=== PATIENT | male | born 2000 | race Caucasian/White ===

== ENCOUNTER 2020-09-05 14:58 | Emergency (ER) | payer OTHER ==
[~2020-09-05] VITALS: Ht 185.4 cm; Wt 94.1 kg
--- NOTE | 2020-09-05 19:14 | REP ---
INDICATION: chest pain/sob. COMPARISON: None. FINDINGS: The superior mediastinal structures are midline. The cardiac silhouette is unremarkable in size, shape, and position. The diaphragmatic surfaces of the lungs are regular, and the costophrenic angles are clear. The pulmonary serrano are clear. The imaged osseous structures are intact. IMPRESSION: There is no acute cardiopulmonary disease. <Electronically signed by Satya Juarez > 09/05/20 [id number]
[2020-09-05] MEDS ORDERED: IBUP80TA PO (19:33)
[2020-09-05 20:45] VITALS: BP 141/90
--- NOTE | 2020-09-06 05:36 | ECGEPIP ---
[facility] - ED Test Date: 2020-09-05 Pat Name: ANNE-MARIE ALLEN Department: Room: - Gender: Male Director Of Collections: VC : 2000 Requested By: Waqas Bowen Order Number: [id number] Reading MD: Robert Serrano Measurements Intervals [place] Rate: 61 P: 62 MO: 158 QRS: 102 QRSD: 106 T: 53 QT: 374 QTc: 376 Interpretive Statements Normal sinus rhythm with sinus arrhythmia Rightward axis Comparison tracing not on file Electronically Signed on 09-06-2020 5:35:44 EDT by Robert Serrano
== END 2020-09-05 20:49 | disposition home or self-care (01) ==
LOC: M ED 14:58
DX: R07.9 Chest pain, unspecified (principal); R06.02 Shortness of breath; T50.B95A Adverse effect of other viral vaccines, initial encounter; Z72.0 Tobacco use

== ENCOUNTER 2021-01-03 08:12 | Observation (INO) | payer OTHER ==
[~2021-01-03] VITALS: Ht 188 cm; Wt 96.6 kg
[~2021-01-03 08:12] MED LIST: IBUP80TA PO
--- NOTE | 2021-01-03 09:02 | REP ---
INDICATION: fall injury COMPARISON: None. TECHNIQUE: AP, lateral, bilateral oblique views left wrist. FINDINGS: No obvious acute fracture or dislocation is identified. IMPRESSION: No obvious acute fracture or dislocation identified. If the patient remains symptomatic consider re-evaluation in 3-5 days. <Electronically signed by Wood Haji > 01/03/21 0812
--- NOTE | 2021-01-03 10:05 | REP ---
INDICATION: fall, R infraorbital pain/laceration, nasal lac. COMPARISON: None. TECHNIQUE: Helical scanning is acquired. 5 mm axial images were reformatted. Coronal MPR images were generated. FINDINGS: Digital preliminary retail key holder radiographs are unremarkable. On bone window settings, the bony calvarium is intact. No skull fracture or bony destructive lesion is seen. Visualized paranasal sinuses are clear. No intraorbital abnormality is seen. On soft tissue window settings, there is no evidence of intracranial hemorrhage or extra-axial fluid collection. There is a small well cyst circumscribed low-density area in the periventricular white matter of the left frontal lobe. This measures 6 mm in diameter and is compatible with a dilated perivascular space which is a normal variant versus a lacune are white matter infarct. This is considered unlikely in this patient's age group. Alaniz-white differentiation pattern is otherwise intact. No acute infarction is seen. No mass or midline shift is observed. IMPRESSION: No skull fracture or intracranial injury seen. 6 mm low-density area in the periventricular white matter of the left frontal lobe as above. Dilated perivascular space versus old lacunar infarct. <Electronically signed by Timoteo Pierce > 01/03/21 1003
--- NOTE | 2021-01-03 10:05 | REP ---
INDICATION: fall, left 5th metacarpal tenderness COMPARISON: None. TECHNIQUE: AP, lateral, bilateral oblique views left hand. FINDINGS: The osseous structures and joint spaces are intact and normal. There is no evidence for acute fracture or dislocation. Surrounding soft tissues are unremarkable. No subcutaneous emphysema or radiodense foreign body. IMPRESSION: . No acute fracture or dislocation. <Electronically signed by Wood Haji > 01/03/21 1004
--- NOTE | 2021-01-03 10:50 | REPVR ---
PROCEDURE INFORMATION: Exam: CT Maxillofacial Without Contrast Exam date and time: 01/03/2021 9:52 AM Age: 20 years old Clinical indication: Pain; Other: Fall; Additional info: Fall, R infraorbital pain/laceration, nasal lac TECHNIQUE: Imaging protocol: Computed tomography images of the face without contrast. Radiation optimization: All CT scans at this facility use at least one of these dose optimization techniques: automated exposure control; mA and/or kV adjustment per patient size (includes targeted exams where dose is matched to clinical indication); or iterative reconstruction. COMPARISON: No relevant prior studies available. FINDINGS: Orbital cavity: Orbits are normal. Globes are unremarkable. Bones/joints: No acute fracture. Paranasal sinuses: Normal. No air-fluid levels. Soft tissues: There is right facial/nasal soft tissue injury, with swelling and small focus of air. IMPRESSION: Soft tissue injury. No fracture. Electronically signed by: Amanda Stokes On 01/03/2021 10:50:28 AM
[2021-01-03] MEDS ORDERED: ceFAZolin SOD 2 GM in IV 1 EA IV ONE (13:55)
[2021-01-03] MEDS ORDERED: FLUTISP NARES (14:19)
[2021-01-03] MEDS ORDERED: HOME MED LIST COMPLETE! XX SCH (14:20)
[2021-01-03] MEDS ORDERED: ONDANSETRON 4MG/2ML VIAL As Ordered ONE (14:30)
[2021-01-03] MEDS ORDERED: MIDAZOLAM INJ 2MG/2ML VIAL (J2250 PER 1MG) As Ordered ONE (14:30)
[2021-01-03] MEDS ORDERED: fentaNYL 100 MCG/2 ML INJECTION (J3010) As Ordered ONE (14:30)
[2021-01-03] MEDS ORDERED: dexameTHASONE 4 MG/ML 1ML VIAL (J1100 PER 1MG) As Ordered ONE (14:30)
[2021-01-03] MEDS ORDERED: LIDOCAINE 2% 100MG/5ML SDV (FOR ANES.) As Ordered ONE (14:30)
[2021-01-03] MEDS ORDERED: ROCURONIUM BROMIDE 50 MG/5 ML VIAL As Ordered ONE (14:30)
[2021-01-03] MEDS ORDERED: propofoL 200 MG/20 ML VIAL As Ordered ONE (14:30)
[2021-01-03 14:37] LABS: RSV AMPLIFICATION NEGATIVE (NEGATIVE)
[2021-01-03 14:38] LABS: BASO % 0.5 % (0.0-1.0); EOS % 0.5 % (0.0-3.0); HEMATOCRIT 46.1 % (42.0-52.0); HEMOGLOBIN 15.7 g/dl (13.5-17.5); LYMPH # 2.1 10^3/uL (1.5-5.0); LYMPH % 26.8 % (24.0-44.0); MEAN CORPUSCULAR HEMOGLOBIN 30.8 pg (27.0-33.0); MEAN CORPUSCULAR HGB CONC 34.1 g/dl (32.0-36.5); MEAN CORPUSCULAR VOLUME 90.4 fl (80.0-96.0); MONO # 0.8 10^3/uL (0.0-0.8); MONO % 10.6 % (2.0-8.0); NEUTROPHILS # 4.8 10^3/uL (1.5-8.5); NEUTROPHILS % 61.3 % (36.0-66.0); PLATELET COUNT, AUTOMATED 234 10^3/uL (150-450); WHITE BLOOD COUNT 7.9 10^3/uL (4.0-10.0)
--- NOTE | 2021-01-03 14:43 | CR.PDOC ---
Plastic Surgery Consultation Date of Consultation 01/03/21 History and Physical CONSULT REPORT FOR: ER REASON FOR CONSULTATION: Nose degloving injury. HISTORY OF PRESENT ILLNESS: This is a 20-year-old male brought into the emergency room status post injury to his nose today. Patient was doing his regular exercises when he fell on his weapon which caused the laceration/degloving injury to his nose. He states he is having difficulty breathing through his right nostril. He denies loss of consciousness. He denies headache, dizziness, pain at this moment. PAST MEDICAL HISTORY: Denies medical history. PAST SURGICAL HISTORY: INCLUDES: Bilateral inguinal hernia. PREVIOUS ANESTHESIA REACTIONS: Denies ALLERGIES: Please see below. FAMILY HISTORY: Noncontributory HOME MEDICATIONS: Please see below. REVIEW OF SYSTEMS: GENERAL: Denies chills, reports weight gain,. HEENT: Denies blurred vision and double vision. Denies ear symptoms. Denies hoarseness. NECK: Denies any neck pain]. CARDIOVASCULAR: Denies chest pain and palpitations. MUSCULOSKELETAL: Denies arthralgias, back pain and thrombophlebitis. SKIN: Denies rash. Laceration nose NEUROLOGIC: Denies headache, stroke and transient ischemic attack. PSYCHIATRIC: Denies anxiety and depression. ENDOCRINE: Denies thyroid disease. HEMATOLOGY/ONCOLOGY: Denies bleeding or clotting disorder. HEART: Denies any chest pains, palpitations, paroxysmal dyspnea, orthopnea. PULMONARY: Denies chronic cough, dyspnea and wheezing. GASTROINTESTINAL: Denies rectal bleeding, family history of colon cancer, constipation, diarrhea, dysphagia, heartburn and jaundice. GENITOURINARY: Denies dysuria, frequency, hematuria and nocturia. ENDOCRINE: Denies polydipsia, polyphagia, polyuria, heat or cold intolerance. INFECTIOUS: Denies any recent upper respiratory tract infection, UTI, need for use of antibiotics. NUTRITION: Reports good appetite. PHYSICAL EXAMINATION: VITALS SIGNS: Please see below. GENERAL APPEARANCE:Patient seen, laying in bed, awake, alert, and oriented. Comfortable, in no acute distress. SKIN: Warm and moist. Complete laceration from the tip of the nose to the lateral right cheek with complete separation upper part of the nose. Right nostril passages completely blocked with clot. Left side intact. HEENT: Normocephalic, atraumatic. [place] palpebral conjunctiva, anicteric sclerae. Lips and mucosa appear moist. NECK: Supple, no thyromegaly. No obvious jugular venous distention. LUNGS: Clear to auscultation bilaterally. No wheezing appreciated. HEART: No chest wall abnormalities. Regular rate and rhythm with no murmurs appreciated. ABDOMEN: Abdomen is soft, non-tender, non-distended. EXTREMITIES: Extremities have no deformities. No edema identified. No calf tenderness. LABORATORY DATA: Please see below. IMAGING STUDIES: Maxillofacial CT results: Orbital cavity: Orbits are normal. Globes are unremarkable. Bones/joints: No acute fracture. Paranasal sinuses: Normal. No air-fluid levels. Soft tissues: There is right facial/nasal soft tissue injury, with swelling and small focus of air. IMPRESSION: Soft tissue injury. No fracture. IMPRESSION: Degloving injury nose. PLANS: Patient is n.p.o. Plan to take to the OR for repair divided structures nasal complex laceration. Risk, benefits, and alternatives to the procedure discussed with the patient in detail. He is ready to proceed. Vital Signs Vital Signs Date Time Temp Pulse Resp B/P (MAP) Pulse Ox O2 Delivery O2 Flow Rate FiO2 01/03/21 08:13 96.6 64 18 134/79 (97) 99 Room Air Laboratory Data Labs 24H Laboratory Tests 2 01/03/21 13:53: 01/03/21 13:56: CBC/BMP Home Medications Scheduled PRN Fluticasone Propionate (Fluticasone Propionate) 16 Gm [place].susp, 1 SPRAY NARES DAILY PRN for CONGESTION, (Reported) Allergies Coded Allergies: No Known Allergies (Unverified , 01/03/21) ANTHONY RANDHAWA DO Jan 03, 2021 14:42
[2021-01-03] MEDS ORDERED: BACITRACIN OINTMENT 30GM TUBE As Ordered ONE (14:50)
[2021-01-03] MEDS ORDERED: LIDOCAINE W/EPINEPHRINE 1% 20ML VIAL As Ordered ONE (14:51)
[2021-01-03] MEDS ORDERED: MORPHINE 2 MG/ML 1ML VIAL (J2270) IV PRN (15:00)
[2021-01-03 15:07] LABS: BLOOD UREA NITROGEN 14 MG/DL (7-18); CALCIUM LEVEL 10.1 MG/DL (8.5-10.1); CARBON DIOXIDE LEVEL 26 MEQ/L (21-32); CHLORIDE LEVEL 106 MEQ/L (98-107); CREATININE FOR GFR 1.06 MG/DL (0.70-1.30); GLOMERULAR FILTRATION RATE > 60.0 (>60); GLUCOSE, FASTING 83 MG/DL (70-100); POTASSIUM SERUM 4.2 MEQ/L (3.5-5.1); SODIUM LEVEL 139 MEQ/L (136-145)
--- NOTE | 2021-01-03 15:14 | HPEPDOC ---
[facility] Medical History & Physical Date of Admission Jan 03, 2021 Date of Service: Jan 03, 2021 Attending Physician: Kristie Sibley MD History and Physical HISTORY OF PRESENT ILLNESS: Patient is a 20-year-old male with hx of tobacco use who presented to the emergency room status post fall injury earlier today. According to the patient he was training and fell face forward onto his gun. There was no loss of consciousness, blurry vision, lightheadedness, dizziness, recent illnesses. The patient states he fell on the left hand and experienced left wrist pain after this. The patient was then brought to the emergency room for further evaluation. CT of the head was negative for any acute findings. CT maxillofacial showed soft tissue injury only. His nose laceration ran horizontal and through the right naris. X-ray of the left hand and left wrist were negative for fracture or dislocation. Plastic surgery evaluated in the emergency room and decided to take to OR later this evening. patient admitted under observation status. REVIEW OF SYSTEMS: GENERAL: Denies chills, reports weight gain,. HEENT: Denies blurred vision and double vision. Denies ear symptoms. Denies hoarseness. NECK: Denies any neck pain]. CARDIOVASCULAR: Denies chest pain and palpitations. MUSCULOSKELETAL: Denies arthralgias, back pain and thrombophlebitis. SKIN: Denies rash. Laceration nose NEUROLOGIC: Denies headache, stroke and transient ischemic attack. PSYCHIATRIC: Denies anxiety and depression. ENDOCRINE: Denies thyroid disease. HEMATOLOGY/ONCOLOGY: Denies bleeding or clotting disorder. HEART: Denies any chest pains, palpitations, paroxysmal dyspnea, orthopnea. PULMONARY: Denies chronic cough, dyspnea and wheezing. GASTROINTESTINAL: Denies rectal bleeding, family history of colon cancer, constipation, diarrhea, dysphagia, heartburn and jaundice. GENITOURINARY: Denies dysuria, frequency, hematuria and nocturia. ENDOCRINE: Denies polydipsia, polyphagia, polyuria, heat or cold intolerance. INFECTIOUS: Denies any recent upper respiratory tract infection, UTI, need for use of antibiotics. PAST MEDICAL HISTORY: Hx of hypospadies Tobacco use PAST SURGICAL HISTORY: INCLUDES: Bilateral inguinal hernia repair Hypospadies surgery ALLERGIES: Please see below. FAMILY HISTORY: No significant Family history per patient HOME MEDICATIONS: Please see below. SOCIAL HISTORY: Vapes weekly, alcohol socially monthly, denies illicit drug use. Active duty PHYSICAL EXAMINATION: CONSTITUTIONAL: No acute distress, resting comfortably, AAO x 3 EYES: PERRLA, EOM intact HENT, MOUTH: Normocephalic, large right naris laceration approx 1.5 inch in length through naris, moist mucous membranes NECK: SUPPLE, no JVD, no lymphadenopathy, no carotid bruit CV: Regular rate and rhythm, S1S2 normal, no murmurs/rubs/gallops RESPIRATORY: Clear to auscultation bilaterally, no rales/rhonchi/wheezes GI: BS positive in 4 quadrants, soft, nontender, nondistended, no rebound or guarding, no organomegaly : Deferred MUSCULOSKELETAL: Decreased ROM left wrist with pain with lateral movement, left wrist in splint. No cyanosis, clubbing, swelling, joint deformity, extremity edema INTEGUMENTARY: Intact, no rashes, no lesions, no erythema NEUROLOGIC: Cranial Nerves II-XII are intact, no focal deficits PSYCHIATRIC: Mood and affect are normal LABORATORY DATA: Please see below IMAGING STUDIES: CT head: No skull fracture or intracranial injury seen. 6 mm low-density area in the periventricular white matter of the left frontal lobe as above. Dilated perivascular space versus old lacunar infarct. CT maxillofacial: Soft tissue injury. No fracture. Left hand and wrist XR neg ASSESSMENT: 20-year-old male with no past medical history admitted for facial degloving injury, nares laceration requiring OR this evening. PLAN: 1. Facial trauma, degloving injury/right nares laceration -Evaluated by plastic surgery , plan to take to the OR today for repair divided structures nasal complex laceration. -Nothing by mouth, pain control -F/u plastics recommendation 2. Left wrist sprain/strain -left wrist splint in place -Pain control 3. DVT px. -SCD/teds for now DISPOSITION: observation admission, plan is d/c home when medically stable. Vital Signs Vital Signs Date Time Temp Pulse Resp B/P (MAP) Pulse Ox O2 Delivery O2 Flow Rate FiO2 01/03/21 08:13 96.6 64 18 134/79 (97) 99 Room Air Laboratory Data Labs 24H Laboratory Tests 2 01/03/21 13:53: Coronavirus (COVID-19)(PCR) NEGATIVE, Influenza Type A (RT-PCR) NEGATIVE, Influenza Type B (RT-PCR) NEGATIVE, Respiratory Syncytial Virus (PCR) NEGATIVE 01/03/21 13:56: Immature Granulocyte % (Auto) 0.3, Neutrophils (%) (Auto) 61.3, Lymphocytes (%) (Auto) 26.8, Monocytes (%) (Auto) 10.6H, Eosinophils (%) (Auto) 0.5, Basophils (%) (Auto) 0.5, Neutrophils # (Auto) 4.8, Lymphocytes # (Auto) 2.1, Monocytes # (Auto) 0.8, Eosinophils # (Auto) 0.0, Basophils # (Auto) 0.0, Nucleated Red Blood Cells % (auto) 0.0 CBC/BMP Laboratory Tests 01/03/21 13:56 Home Medications Scheduled PRN Fluticasone Propionate (Fluticasone Propionate) 16 Gm [place].susp, 1 SPRAY NARES DAILY PRN for CONGESTION Allergies Coded Allergies: No Known Allergies (Unverified , 01/03/21) A-FIB/CHADSVASC A-FIB History Current/History of A-Fib/PAF?: No Current PO Anticoag Therapy: No Age/Risk Factor Scoring CHADSVASC: CHADSVASC Response (Comments) Value Age Risk Factor Age < 65 years old 0 Gender Risk Factor Male 0 Hx of CHF No 0 Hx of HTN No 0 Hx of Stroke/TIA/or VTE No 0 Hx of Diabetes No 0 Hx of Vascular Disease No 0 Total 0 Treatment Treatment ordered: Holding Other Kristie Sibley MD Jan 03, 2021 15:14
[2021-01-03] MEDS ORDERED: ACETAMINOPHEN 1000MG 100ML IV BTL (OFIRMEV) (J0131 PER 10MG) As Ordered ONE (16:09)
[2021-01-03] MEDS ORDERED: SUGAMMADEX SODIUM 500 MG/5 ML VIAL (BRIDION) As Ordered ONE (16:09)
[2021-01-03] MEDS ORDERED: HYDROmorphone HCL 2 MG/ML 1ML VIAL As Ordered ONE (16:10)
--- NOTE | 2021-01-03 17:05 | POST-OPPD ---
Postoperative Procedure Note Date Of Procedure: Jan 03, 2021 PREOPERATIVE DIAGNOSIS: Trauma to the face. Complex laceration nose POSTOPERATIVE DIAGNOSIS: same PROCEDURE: Exploration complex laceration nose and repair of divided structures. SURGEON: Dr Randhawa RUBBER MOLDER: none ANESTHESIA: general ESTIMATED BLOOD LOSS: 1 cc FINDINGS: complete division of right lateral nostril from tip of the nose to the nasolabial crease. SPECIMENS: none COMPLICATIONS: none REPLACED: none DRAINS: Mericell packing right nostril POSTOPERATIVE CONDITION: stable ANTHONY RANDHAWA DO Jan 03, 2021 17:05
--- NOTE | 2021-01-03 17:06 | ROOPDOC ---
[facility] Report Of Operation Report of Operation DATE OF PROCEDURE: 01/03/21 PREOPERATIVE DIAGNOSIS: Trauma to the face. Complex laceration nose POSTOPERATIVE DIAGNOSIS: same PROCEDURE: Exploration complex laceration nose and repair of divided structures. SURGEON: Dr Randhawa RADIO JOURNALIST: none ANESTHESIA: general ESTIMATED BLOOD LOSS: 1 cc FINDINGS: complete division of right lateral nostril from tip of the nose to the nasolabial crease. SPECIMENS: none COMPLICATIONS: none REPLACED: none DRAINS: Mericell packing right nostril POSTOPERATIVE CONDITION: stable DESCRIPTION OF PROCEDURE: This is a 20-year-old male who sustained injury to his nose while doing exercise. Patient was seen in the emergency room with complex laceration horizontally oriented through the tip of his nose and into the base of his cheek. Patient had difficulty breathing through the right nostril which is occluded with significant clot. Risk, benefits, and alternatives of the procedure discussed with the patient and he is ready to proceed for exploration complex laceration and repair divided structures. Patient brought into the operating room placed in supine position preoperative antibiotics were given and emergency room, 2 g Ancef. General anesthesia is induced. He was prepped and draped in usual sterile fashion. We started procedure by removing the clot from the right nostril and examining the passages with the nasal speculum. In conjunction with CAT scan we evaluated bony structure which was not affected, however the laceration is complete through and through through the lateral nostril and the tip of the nose which transected the tip including the cartilaginous framework and the lower lateral cartilage on the right completely transected. Wound is irrigated with normal saline solution. Mucous membrane inside nose examined and found an abrasion which was coagulated with electrocautery. None right nostril was packed with 1/2 inch cottonoid soaked with 1% lidocaine with epinephrine. Was started to realign the nasal framework again the cartilage at the tip and as well as the la teral portion of the lower lateral cartilages repaired with 4-0 Vicryl sutures. Mucous layer repaired with 4-0 chromic sutures. And the skin realigned with 5-0 Monocryl sutures interrupted fashion which was closed in layers with 5-0 Monocryl sutures. Good symmetry was achieved. Cottonoid was removed. Merisel packing with breathing to bill was inserted. Bacitracin ointment to all incisions and including inside the nose. Patient extubated in operating room without any difficulties and transferred to recovery in stable condition. ANTHONY RANDHAWA DO Jan 03, 2021 17:06
[2021-01-03] MEDS ORDERED: LACRILUBE (AKWA TEARS) OPHTH OINT 3.5 GM As Ordered ONE (17:31)
[2021-01-03] MEDS ORDERED: fentaNYL 100 MCG/2 ML INJECTION (J3010) IV PRN (17:40)
[2021-01-03] MEDS ORDERED: MEPERIDINE INJ 25 MG/ML VIAL (J2175) IV PRN (17:40)
[2021-01-03] MEDS ORDERED: ONDANSETRON 4MG/2ML VIAL IV PRN (17:40)
[2021-01-03] MEDS ORDERED: PERCOCET 5MG/325MG TAB PO PRN (17:40)
[2021-01-03] MEDS ORDERED: LR 1,000 ML IV SCH (17:40)
[2021-01-03 18:50] VITALS: BP 130/77
[2021-01-03 20:30] VITALS: BP 133/79
[2021-01-03 20:40] LABS: INR 1.14; PARTIAL THROMBOPLASTIN TIME 30.4 SECONDS (25.9-37.0); PROTHROMBIN TIME 15.1 SECONDS (12.7-14.5)
[2021-01-03] MEDS ORDERED: ACETAMINOPHEN *IV* 1,000 MG in IV 1 EA IV ONE (23:00)
[2021-01-03] MEDS ORDERED: ACETAMINOPHEN TAB 650MG DOSE (2X325MG) PO PRN (23:00)
[2021-01-04 06:00] VITALS: BP 126/77
[2021-01-04] MEDS ORDERED: ACET1TAB55 PO (09:16)
[2021-01-04] MEDS ORDERED: TRAM50TA2 PO (09:16)
--- NOTE | 2021-01-04 11:29 | IPNPDOC ---
Subjective General Date Seen: Jan 04, 2021 Subject Chief Complaint/History The patient is a 20-year-old male admitted with a reason for visit of Facial Contusion, Left Wrist Sprain. S/p exploration nose complex laceration and repair of divided structures. POD 1. Doing well. No problem breathing, no bleeding. Current Medications Current Medications Current Medications Medications (Trade) Dose Ordered Sig/Sunny Route PRN Reason Start Time Stop Time Status Last Admin Dose Admin Acetaminophen (Tylenol Tab) 650 mg Q6HP PRN PO MILD PAIN or TEMP > 101 01/03/21 23:00 01/03/21 23:18 Fentanyl Citrate (Sublimaze) 25 mcg Q5MP PRN IV PAIN LEVEL 8-10 01/03/21 17:40 01/03/21 19:40 DC Home Med (Home Med List Complete!) ASDIRECTED XX 01/03/21 14:20 01/03/21 14:27 DC Lactated Ringer's 1,000 ml @ 100 mls/hr Q10H IV 01/03/21 17:40 01/03/21 19:40 DC 01/03/21 18:52 Meperidine HCl (Demerol) 12.5 mg Q5MP PRN IV SHIVERING 01/03/21 17:40 01/03/21 19:40 DC Morphine Sulfate (Morphine Sulfate Inj) 1 mg Q4HP PRN IV MODERATE PAIN (PS 5-7) 01/03/21 15:00 Ondansetron HCl (ZOFRAN INJection) 4 mg Q4HP PRN IV NAUSEA OR VOMITING 01/03/21 17:40 01/03/21 19:40 DC Oxycodone/ Acetaminophen (Percocet 5mg/ 325mg Tablet) 1 tab ASDIRECTED PRN PO PAIN LEVEL 1-4 01/03/21 17:40 01/03/21 19:40 DC Allergies Coded Allergies: No Known Allergies (Unverified , 01/03/21) Objective Physical Examination Examination GENERAL APPEARANCE:Patient seen, laying in bed, awake, alert, and oriented. Comfortable, in no acute distress. SKIN: Warm and moist. HEENT: Normocephalic, atraumatic. [place] palpebral conjunctiva, anicteric sclerae. Lips and mucosa appear moist. Nose with good contour. Absorbable sutures in place. Packing removed, open passage. No active bleeding. NECK: Supple, no thyromegaly. No obvious jugular venous distention. Vital Signs Vital Signs Date Time Temp Pulse Resp B/P (MAP) Pulse Ox O2 Delivery O2 Flow Rate FiO2 01/04/21 06:00 98.4 60 21 126/77 (93) 99 Room Air I&Os I&O- Last 24 Hours up to 6 AM 01/04/21 05:59 Intake Total 920 ml Output Total 300 ml Balance 620 ml Laboratory Data Labs 24H Laboratory Tests 2 01/03/21 13:53: Coronavirus (COVID-19)(PCR) NEGATIVE, Influenza Type A (RT-PCR) NEGATIVE, Influenza Type B (RT-PCR) NEGATIVE, Respiratory Syncytial Virus (PCR) NEGATIVE 01/03/21 13:56: Immature Granulocyte % (Auto) 0.3, Neutrophils (%) (Auto) 61.3, Lymphocytes (%) (Auto) 26.8, Monocytes (%) (Auto) 10.6H, Eosinophils (%) (Auto) 0.5, Basophils (%) (Auto) 0.5, Neutrophils # (Auto) 4.8, Lymphocytes # (Auto) 2.1, Monocytes # (Auto) 0.8, Eosinophils # (Auto) 0.0, Basophils # (Auto) 0.0, Nucleated Red Blood Cells % (auto) 0.0, Anion Gap 7L, Glomerular Filtration Rate > 60.0, Calcium Level 10.1 01/03/21 20:17: Prothrombin Time 15.1H, Prothromb Time International Ratio 1.14, Activated Partial Thromboplast Time 30.4 CBC/BMP Laboratory Tests 01/03/21 13:56 Impression 20-year-old male status post exploration nose complex laceration with repair divided structures. Stable for discharge. Follow-up plastic surgery office after discharge. Plan / VTE VTE Prophylaxis Ordered?: No ANTHONY RANDHAWA DO Jan 04, 2021 11:29
--- NOTE | 2021-01-04 20:07 | DS.PDOC ---
Discharge Summary General Date of Admission Jan 03, 2021 at 08:13 Date of Discharge 01/04/21 Attending Physician: Kristie Sibley MD Discharge Summary HISTORY OF PRESENT ILLNESS: Patient is a 20-year-old male with hx of tobacco use who presented to the emergency room status post fall injury earlier today. According to the patient he was training and fell face forward onto his gun. There was no loss of consciousness, blurry vision, lightheadedness, dizziness, recent illnesses. The patient states he fell on the left hand and experienced left wrist pain after this. The patient was then brought to the emergency room for further evaluation. CT of the head was negative for any acute findings. CT maxillofacial showed soft tissue injury only. His nose laceration ran horizontal and through the right naris. X-ray of the left hand and left wrist were negative for fracture or dislocation. Plastic surgery evaluated in the emergency room and decided to take to OR later this evening. patient admitted under observation status. HOSPITAL COURSE: Patient was taken for exploration nose complex laceration and repair of divided structures on 01/03/21. He tolerated surgery well without complications. Post-op there were no complications. On 01/04/21 he was discharged home to f/u with plastic surgery as o/p. At discharge he denied problems breathing, bleeding. PAST MEDICAL HISTORY: Hx of hypospadies Tobacco use PAST SURGICAL HISTORY: INCLUDES: Bilateral inguinal hernia repair Hypospadies surgery ALLERGIES: Please see below. FAMILY HISTORY: No significant Family history per patient HOME MEDICATIONS: Please see below. SOCIAL HISTORY: Vapes weekly, alcohol socially monthly, denies illicit drug use. Active duty DISCHARGE MEDS: Please see below PHYSICAL EXAMINATION: VS: stable CONSTITUTIONAL: No acute distress, resting comfortably, AAO x 3 EYES: PERRLA, EOM intact HENT, MOUTH: Normocephalic, large right naris laceration approx 1.5 inch in length sutured nicely, clean, minimal swelling, moist mucous membranes NECK: SUPPLE, no JVD, no lymphadenopathy, no carotid bruit CV: Regular rate and rhythm, S1S2 normal, no murmurs/rubs/gallops RESPIRATORY: Clear to auscultation bilaterally, no rales/rhonchi/wheezes GI: BS positive in 4 quadrants, soft, nontender, nondistended, no rebound or guarding, no organomegaly : Deferred MUSCULOSKELETAL: Decreased ROM left wrist with pain with lateral movement, left wrist in splint. No cyanosis, clubbing, swelling, joint deformity, extremity edema INTEGUMENTARY: Intact, no rashes, no lesions, no erythema NEUROLOGIC: Cranial Nerves II-XII are intact, no focal deficits PSYCHIATRIC: Mood and affect are normal LABORATORY DATA: Please see below IMAGING STUDIES: CT head: No skull fracture or intracranial injury seen. 6 mm low-density area in the periventricular white matter of the left frontal lobe as above. Dilated perivascular space versus old lacunar infarct. CT maxillofacial: Soft tissue injury. No fracture. Left hand and wrist XR neg ASSESSMENT: 20-year-old male with no past medical history admitted for facial degloving injury, nares laceration requiring OR this evening. PLAN: 1. Facial trauma/right nares laceration s/p exploration nose complex laceration and repair of divided structures. -POD 1 without issues overnight -F/u plastic surgery as o/p -Pain control tylenol 2. Left wrist sprain/strain -left wrist splint in place -Pain control -F/u with PCP to determine need over next week DISPOSITION: D/c home today with f/u with plastic surgery, Dr. Jacome. TIME SPENT ON DISCHARGE: 35 minutes. Vital Signs/I&Os Vital Signs Date Time Temp Pulse Resp B/P (MAP) Pulse Ox O2 Delivery O2 Flow Rate FiO2 01/04/21 06:00 98.4 60 21 126/77 (93) 99 Room Air I&O- Last 24 Hours up to 6 AM 01/04/21 06:00 Intake Total 970 ml Output Total 300 ml Balance 670 ml Laboratory Data Labs 24H Laboratory Tests 2 01/03/21 20:17: Prothrombin Time 15.1H, Prothromb Time International Ratio 1.14, Activated Partial Thromboplast Time 30.4 Discharge Medications Scheduled PRN Acetaminophen (Acetaminophen) 325 Mg Tablet, 650 MG PO Q6HP PRN for MILD PAIN or TEMP > 101 Tramadol HCl (Tramadol HCl) 50 Mg Tablet, 50 MG PO Q6HP PRN for pain Allergies Coded Allergies: No Known Allergies (Unverified , 01/03/21) Kristie Sibley MD Jan 04, 2021 20:07
== END 2021-01-04 10:45 | disposition home or self-care (01) ==
LOC: M ED 08:12 → M ED INP 08:13 → M MS5PR 18:46
PROVIDERS: ADMIT Internal Medicine; ATTEND Internal Medicine
DX: S01.21XA Laceration without foreign body of nose, initial encounter (principal); J34.89 Other specified disorders of nose and nasal sinuses; S63.502A Unspecified sprain of left wrist, initial encounter; W01.198A Fall on same level from slipping, tripping and stumbling with subsequent striking against other object, initial encounter; Y92.138 Other place on military base as the place of occurrence of the external cause; Y93.02 Activity, running; Y99.1 Military activity; F17.290 Nicotine dependence, other tobacco product, uncomplicated
CPT/HCPCS: 13152; 36415; 70450; 70486; 73110; 73130; 80048; 85025; 85610; 85730; 87631; 96365; 99284; J0131; J0690; J1100; J1170; J2250; J2405; J3010